=== PATIENT | male | born 1945 | race Caucasian/White ===

== ENCOUNTER 2018-07-06 13:04 | Outpatient (CLI) | payer MEDICARE ==
--- NOTE | 2018-07-06 14:10 | CT ---
CT CHEST WITHOUT CONTRAST: DATE: 07/06/18. PROVIDED CLINICAL HISTORY: History of smoking, screening for lung cancer. FINDINGS: No comparisons. The heart, pericardium, and great vessels demonstrate an unremarkable enhanced CT ap pearance with the exception of vascular calcification including coronary calcium. There is no eviden ce for thoracic lymph node enlargement. The airway appears patent and of normal caliber. There is e levation of the left hemidiaphragm. There is a 6 mm average axial dimension nodule involving the right lung apex. This is predominantly noncalcified. There is a focus of calcification at the inferior extent. The lungs appear otherwise clear. There is no pleural fluid or pneumothorax apparent. There is no evidence for thoracic lymph node enlargement with limitations due to lack of IV contrast. The visualized portions of the upper a bdomen appear grossly unremarkable. The osseous structures demonstrate no concerning lytic or blasti c lesions. IMPRESSION: Lung RADS category 3 - benign findings. A 6 mm pulmonary nodule at the right lung apex should be fol lowed up with low-dose chest CT in 6 months. POS: [facility]
== END 2018-07-06 13:05 | disposition home or self-care (01) ==
LOC: CT 13:04
PROVIDERS: ATTEND Family Medicine
DX: Z87.891 Personal history of nicotine dependence (principal); R91.1 Solitary pulmonary nodule
CPT/HCPCS: G0297

== ENCOUNTER 2019-01-05 11:00 | Outpatient (CLI) | payer MEDICARE ==
--- NOTE | 2019-01-05 12:59 | CT ---
CT CHEST WITHOUT CONTRAST: DATE: 01/05/2019. PROVIDED CLINICAL HISTORY: Nodule, abnormal prior CT scan. FINDINGS: Comparison is made with the study dated 07/06/2018. The heart, pericardium, and great vessels demonstrate unchanged unenhanced CT appearance with vascula r calcification including coronary calcium again demonstrated. There is no evidence for thoracic lym ph node enlargement with limitations due to lack of IV contrast. There is a stable 6 mm predominantly noncalcified pulmonary nodule at the right upper lobe measuring about 6 mm in average axial dimension. The lungs are otherwise free of significant opacity. The airway appears patent and of normal caliber. No pleural fluid or pneumothorax apparent. The vis ualized portions of the upper abdomen demonstrate grossly unremarkable unenhanced CT appearance. The osseous structures demonstrate no concerning lytic or blastic lesions. IMPRESSION: No interval change in 6 mm average axial dimension right upper lobe pulmonary nodule. Lung RADS abby gory 2. Return to annual screening recommended. POS: [facility]
== END 2019-01-05 11:01 | disposition home or self-care (01) ==
LOC: CT 11:00
PROVIDERS: ATTEND Internal Medicine Hematology & Oncology
DX: Z87.891 Personal history of nicotine dependence (principal); R91.1 Solitary pulmonary nodule
CPT/HCPCS: G0297

== ENCOUNTER 2020-01-10 11:48 | Outpatient (CLI) | payer MEDICARE ==
--- NOTE | 2020-01-10 12:53 | CT ---
CT pulmonary lung scan without IV contrast INDICATION: Lung cancer screening protocol; 74-year-old male with history of nicotine dependence; smo ker for 45 years and quit 13 years ago COMPARISON: CT pulmonary lung scan dated January 05, 2019 and July 06, 2018. FINDINGS: LUNGS: Nodules\mass: The partially calcified pulmonary nodule within the right upper lobe is stable. The pul monary nodule measures 8.5 x 5.9 mm. This is stable to the 2018 examination. No new suspicious pulmonary nodules are present. Emphysema: There is [id number] centrilobular emphysema. Additional findings: There are areas of subsegmental volume loss within the lower lingula and left lo wer lobe which is stable. There is stable elevation the left hemidiaphragm. Mediastinum: There are coronary artery and thoracic aortic calcifications. No pathologically enlarged lymph nodes are evident. Upper abdomen: There is a stable left hepatic lobe cyst measuring 3.1 cm. Visualized adrenal glands a re normal appearing. Osseous structures: No acute abnormality. There is scattered degenerative and osteoarthritic change p resent. IMPRESSION: Lung-RADS Category 2: Benign- Continue annual screening with LDCT in 12 months Category S: Mild/moderate centrilobular emphysema. Coronary artery and thoracic aortic calcifications . Left hepatic lobe cyst. Category C: Not applicable.
== END 2020-01-10 11:49 | disposition home or self-care (01) ==
LOC: CT 11:48
PROVIDERS: ATTEND Internal Medicine
DX: Z12.2 Encounter for screening for malignant neoplasm of respiratory organs (principal); F17.211 Nicotine dependence, cigarettes, in remission; J43.2 Centrilobular emphysema; I25.10 Atherosclerotic heart disease of native coronary artery without angina pectoris; I70.0 Atherosclerosis of aorta; K76.89 Other specified diseases of liver
CPT/HCPCS: G0297

== ENCOUNTER 2020-07-27 12:01 | Outpatient (CLI) | payer MEDICARE ==
--- NOTE | 2020-07-27 12:41 | RAD ---
XR Chest Pa Lat STANDARD HISTORY: Dyspnea COMPARISON: None FINDINGS: The heart size is normal. The lungs are well expanded without focal areas of consolidation, pneumothorax or pleural effusions. IMPRESSION: No radiographic evidence of acute cardiopulmonary process.
== END 2020-07-27 12:02 | disposition home or self-care (01) ==
LOC: BICRAD 12:01
PROVIDERS: ATTEND Internal Medicine Critical Care Medicine
DX: R06.00 Dyspnea, unspecified (principal)
CPT/HCPCS: 71046

== ENCOUNTER 2021-01-15 11:11 | Outpatient (CLI) | payer MEDICARE | END 2021-01-15 11:12 | disposition home or self-care (01) | LOC: BICCT 11:11 | PROVIDERS: ATTEND Internal Medicine | DX: Z12.2 Encounter for screening for malignant neoplasm of respiratory organs (principal); F17.211 Nicotine dependence, cigarettes, in remission | CPT/HCPCS: 71271 ==